=== PATIENT | male | born 1990 | race Caucasian/White ===

== ENCOUNTER 2024-07-02 16:34 | Outpatient (REF) | payer MEDICAID, SELFPAY ==
[2024-07-02 17:00] LABS: Buprenorphine Scr Not Detected (Not Detect)
== END 2024-07-02 16:35 | disposition home or self-care (01) ==
LOC: HO.HHCLNP 16:34
PROVIDERS: Visit Provider Family Medicine
DX: F11.20 Opioid dependence, uncomplicated (principal)
CPT/HCPCS: 36415; 80307

== ENCOUNTER 2024-09-24 17:53 | Outpatient (REF) | payer MEDICAID, SELFPAY ==
--- OUTSIDE RECORDS SUMMARY | 2024-09-24 17:55 | XMS_ITS | Encounter Summary ---
Author Organization [employer] Address [address] [place] [address] Care Team Providers Care Associate Professor Of Literature Name Role Phone Emily Gallegos MD Primary Care Provider + Reason for Visit * Reason Onset Date Comments Med Refill 09/24/2024 Encounter Details Date Type Department Care Team ([facility] st Contact Info) Description 09/24/2024 Refill [facility] [address] [place], [place] [phone] Jalyn Huff MD [address] [place] [address] Uncomplicated opioid dependence (CMS/HCC) Social History Tobacco Use Types Packs/Day Years Used Date Smoking Tobacco: Every Day Cigarettes Smokeless Tobacco: Never Alcohol Use Standard Drinks/Week Comments Not Currently 0 (1 standard drink = 0.6 oz pur e alcohol) Housing Stability Answer Date Recorded What is your housing situation today? I have housing today, but I am worried about losing housing in the future 06/04/[address] you li ve. Do you have problems with any of the following? None of the above 06/04/2024 Food Insecurity Answer Date Recorded Within the past 12 months, y ou worried that your food would run out before you got money to buy more: Never True 09/02/2023 Within the past 12 months,th e food you bought just didn't last and you didn't have enough money to get more: Never True 04/2024 Transportation Answer Date Recorded In the past 12 months, has l ack of transportation kept you from medical appts, meetings, work or from getting things needed for daily living? No 06/04/2024 Utilities Answer Date Recorded In the past 12 months, has t he electric, gas, oil or water company threatened to shut off services in your home? No 06/04/2024 Depression Answer Date Recorded Patient Health Questionnaire-2 Score 0 06/04/2024 Internet Access Answer Date Recorded Internet Access Q1 No 06/04/2024 Internet Access Q2 I do not want or need it 05/24 Sex and Gender Information Value Date Recorded Sex Assigned at Male 04/23/2022 10:20 AM EDT Legal Sex Male 10:20 AM EDT Gender Identity Male 04/23/2022 10:20 AM EDT Sexual Orientation Straight 04/23/2022 10 :20 AM EDT documented as of this encounter Plan of Treatment Upcoming Encounters Date Type Department Care Team (Late st Contact Info) Description 09/29/2024 10:30 AM EDT Office Visit [address] [address] Emily Gallegos MD [address] [place] [phone] 10/01/2024 3:15 PM EDT Office Visit [address] [address] Jalyn Huff MD [address] [place] [phone] 10/08/2024 3:45 PM EDT Office Visit [address] [address] Jalyn Huff MD [address] [place] [phone] documented as of this encounter Goals Goal Patient Goal Type Associated Problems Recent Progress Patient-Stated? Author Improve quality of life by maintaining ongoing abstinence from all mood-altering substances General Not on track( 025 9:58 AM EDT) Abhi Green, RN documented as of this encounter Visit Diagnoses Diagnosis Uncomplicated opioid dependence (CMS/HCC) documented in this encounter Care Teams Associate Professor Of Literature Relationship Specialty Start Date End Date Emily Gallegos MD [address] [place] [phone] PCP - General Family Medicine 05/30/16 documented as of this encounter
--- OUTSIDE RECORDS SUMMARY | 2024-09-24 17:55 | XMS_ITS | Encounter Summary ---
Author Organization [employer] Address [address] [facility] 7t [place] [address] Care Team Providers Care Putty And Patch Worker Name Role Phone Emily Gallegos MD Primary Care Provider + Reason for Visit * Reason Comments OBAT F/U Encounter Details Date Type Department Care Team ([facility] st Contact Info) Description 09/24/2024 3:15 PM EDT Office Visit [facility] [address] [place], [place] [phone] Jalyn Huff MD [address] [place] [address] Opioid type dependence, continuous (CMS/HCC) (Primary Dx) Social History Tobacco Use Types Packs/Day Years [...] AM EDT documented as of this encounter Progress Notes * Jalyn Huff MD - 09/24/2024 3:15 PM EDT Patient here today for Opioid Dependence. Current Suboxone dose of 16 mg on a 1 week schedule. Pt has been in the program for 3 months. Induction date: 06/04/24. LFTs due, ordered. Patient actively enrolled in w/ [employer]. MAPAT reviewed by provider. PCP is Dr Gallegos, appt 07/29/24, next 09/29/24. LAST VISIT 09/18/24 +bup, tacos, thc Woo continues to abstain from heroin with the help of Suboxone. He is working a couple days a week. 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 He recognizes he needs to address his cocaine use. Feels ready to start attending groups. Working with Kenney CARIAS. [facility]. Reminded him of upcoming PCP appt. TODAY VISIT 09/24/2024 UTOX:pos,opi,tacos,fen,thc,bup Subjective Patient ID: Woo Oshea is a 34 y.o. male who presents for OBAT F/U . Woo is being seen for OBAT services. He continues to use cocaine. Denies using heroin/fentanyl. We discussed the possibility that it's in his cocaine or MJ supply. He is connected to [facility]TH[facility] M[facility]. Has access to Narcan. Review of Systems Psychiatric/Behavioral: Negative for dysphoric mood. The patient is not nervous/anxious. Objective Physical Exam Constitutional: Appearance: Normal appearance. He is well-developed. Skin: General: Skin is warm and dry. Neurological: General: No focal deficit present. Mental Status: He is alert and oriented to person, place, and time. Mental status is at baseline. Psychiatric: Mood and Affect: Mood normal. Behavior: Behavior normal. Assessment/Plan Diagnoses and all orders for this visit: Opioid type dependence, continuous ([facility]) Counseling provided RE: importance of multiple sources of support for achieving and maintaining recovery. Counseling RE: harm reduction measures, ie, not using alone, the use of clean needles/equipment, Narcan. Discussed strategies to use when confronted with situations that trigger use. Continue current Suboxone dose. Continue weekly visits. - POCT NADYA-14 Urine Drug Screen - Drug Monitoring, Fentanyl, with Confirmation, Urine - Drug Monitoring, Opiates Expanded, Quantitative, Urine This information has been disclosed to you from records protected by federal confidentiality rules (42 CFR Part 2). The federal rules prohibit you from making any further disclosure of information inthis record that identifies a patient as having or having had a substance use disorder either directly, by reference to publicly available information, or through verification of such identification by another person unless further disclosure is expressly permitted by the written consent of the individual whose information is being disclosed or as otherwise permitted by (see2.3.1). The federal rules restrict any use of the information to investigate or prosecute with regard to a crime any patient with a substance use disorder, except as provided at 2.12??(5) and 2.65. documented in this encounter Plan of Treatment Upcoming Encounters Date Type Department Care Team (Late st Contact Info) Description 09/29/2024 10:30 AM EDT Office Visit [facility] [address] [place], [place] [phone] Emily Gallegos MD [address] [place], [place] [phone] 10/01/2024 3:15 PM EDT Office Visit [facility] [address] [place] [address] Jalyn Huff MD [address] [place] [address] 10/08/2024 3:45 PM EDT Office Visit [facility] [address] [place] [address] Jalyn Huff MD [address] [place] [address] Scheduled Orders Name Type Priority Associated Diagnoses Orde r Schedule POCT NADYA-14 Urine Drug Screen Point of Care Testing Routine Opioid type dependence, continuous (CMS/HCC) Ordered: 09/24/2024 Drug Monitoring, Fentanyl, with Confirmation, Urine Lab Routine Opioid type dependence, continuous (CMS/HCC) Ordered: 09/24/2024 Drug Monitoring, Opiates Expanded, Quantitative, Urine Lab Routine Opioid type dependence, continuous (CMS/HCC) Ordered: 09/24/2024 documented as of this encounter Goals Goal Patient Goal Type Associated Problems Recent Progress Patient-Stated? Author Improve quality of life by maintaining ongoing abstinence from all mood-altering substances General Not on track( 025 9:58 AM EDT) No Abhi Figueroa, RN documented as of this encounter Procedures Procedure Name Priority Date/Time Associated Diagnosis Comments POCT NADYA-14 URINE DRUG SCREEN Routine 09/24/2024 4:08 PM EDT Opioid type dependence, continuous (CMS/HCC) documented in this encounter Results * POCT NADYA-14 Urine Drug Screen (09/24/2024 4:08 PM EDT) THC Positive Cocaine Screen, Urine Positive Opiate Screen, Urine Positive Methamphetamine Screen Urine Negative Amphetamine Screen, Urine Negative Benzodiazepines Screen, Urine Negative Barbiturate Screen, Urine Negative Methadone Screen, Urine Negative Buprenophine Screen, Urine Positive TCA, Urine Negative MDMA Urine Negative ng/mL Oxycodone Screen, Urine Negative Phencyclidine (PCP), Urine Negative Fentanyl, Urine Positive Urine Urine specimen obtained by clean catch procedure / Unknown 09/24/2024 4:08 PM EDT Jalyn Huff MD POINT OF CARE TEST ENTER/AUGUSTA T ORDERABLES Final Result documented in this encounter Visit Diagnoses Diagnosis Opioid type dependence, continuous (CMS/HCC)- Primary Opioid type dependence, continuous documented in this encounter Care Teams Putty And Patch Worker Relationship Specialty Start Date End Date Emily Gallegos MD [address] [place] [phone] PCP - General Family Medicine 05/30/16 documented as of this encounter
--- OUTSIDE RECORDS SUMMARY | 2024-09-24 17:55 | XMS_ITS | Encounter Summary ---
Author Organization [employer] Address [address] [facility] [address] [place] [address] Care Team Providers Care Folder Machine Operator Name Role Phone Emily Gallegos MD Primary Care Provider + Reason for Visit * Reason Comments Recovery Supports Encounter Details Date Type Department Care Team ([facility] st Contact Info) Description 09/18/2024 Patient Outreach [facility] [address] [place] [address] Kenney Ornelas Recovery Supports Social History Tobacco Use Types Packs/Day Years [...] as of this encounter Progress Notes * Kenney Ornelas - 09/18/2024 11:59 PM EDT I met with Woo galvez. Setting: in person at [facility] Recovery Wellness Goals worked on: Social Stability Action taken/next steps: Offered person centered recovery support and Attended alcohol and drug free activity Additional comments: Kenney Ornelas documented in this encounter Plan of Treatment Upcoming Encounters Date Type Department Care Team (Late st Contact Info) Description 09/29/2024 10:30 AM EDT Office Visit [facility] [address] [place] [phone] Emily Gallegos MD [address] [place] [address] 10/01/2024 3:15 PM EDT Office Visit [address] [address] Jalyn Huff MD [address] [place] [phone] 10/08/2024 3:45 PM EDT Office Visit [address] [address] Jalyn Huff MD [address] [place] [phone] documented as of this encounter Goals Goal Patient Goal Type Associated Problems Recent Progress Patient-Stated? Author Improve quality of life by maintaining ongoing abstinence from all mood-altering substances General Not on track( 025 9:58 AM EDT) Abhi Green RN documented as of this encounter Visit Diagnoses Not on filedocumented in this encounter Care Teams Folder Machine Operator Relationship Specialty Start Date End Date Emily Gallegos MD [address] [place] [phone] PCP - General Family Medicine 05/30/16 documented as of this encounter
--- OUTSIDE RECORDS SUMMARY | 2024-09-24 17:55 | XMS_ITS | Clinical Summary ---
Author Organization [employer] Address [address] [facility] 7t [place] [address] Care Team Providers Care Abrasive Grader Helper Name Role Phone Emily Gallegos MD Primary Care Provider + Allergies No known active allergies Medications * This document contains information received from the source organization and may not represent a complete record from that organization. naloxone (Narcan) 4 mg/0.1 mL nasal spray Administer 1 spray (4 mg) into affected nostril(s) if needed for opioid reversal. May repeat every 2-3 minutes if needed, alternating nostrils, until medical assistance becomes available. 2 each 06/04/20 24 025 Active prazosin (Minipress) 1 MG capsule Take 1 mg by mouth at bedtime. 07/04/19 22 Active buPROPion SR (Wellbutrin SR) 100 MG 12 hr tablet Take 1 tablet (100 mg) by mouth every 12 (twelve) hours. 60 tablet 3 07/29/19 25 Active traZODone (Desyrel) 50 MG tablet Take 1 tablet (50 mg) by mouth if needed at bedtime for sleep. 30 tablet 1 07/29/19 25 025 Active Buprenorphine HCl-Naloxone HCl (Suboxone) 8-2 MG SL filmIndicatio ns:Uncomplica byron opioid dependence (CMS/HCC) Place 2 Film under the tongue Once per day for 7 days. 14 Film 09/25/19 25 025 Active Buprenorphine HCl-Naloxone HCl (Suboxone) 8-2 MG SL filmIndicatio ns:Uncomplica byron opioid dependence (CMS/HCC) Place 2 Film under the tongue Once per day for 7 days. 14 Film 08/25/19 25 025 Discontinued(Re order (will not trigger notification to Pharmacy)) Buprenorphine HCl-Naloxone HCl (Suboxone) 8-2 MG SL filmIndicatio ns:Uncomplica byron opioid dependence (CMS/HCC) Place 2 Film under the tongue Once per day for 7 days. 14 Film 09/01/19 25 025 Discontinued(Re order (will not trigger notification to Pharmacy)) Buprenorphine HCl-Naloxone HCl (Suboxone) 8-2 MG SL filmIndicatio ns:Uncomplica byron opioid dependence (CMS/HCC) Place 2 Film under the tongue Once per day for 7 days. 14 Film 09/11/19 25 025 Discontinued(Re order (will not trigger notification to Pharmacy)) Buprenorphine HCl-Naloxone HCl (Suboxone) 8-2 MG SL filmIndicatio ns:Uncomplica byron opioid dependence (CMS/HCC) Place 2 Film under the tongue Once per day for 7 days. 14 Film 09/15/19 25 025 Discontinued(Re order (will not trigger notification to Pharmacy)) Active Problems Problem Noted Date Diagnosed Date Opioid dependence, uncomplicated 08/26/2023 Assessment & Plan (07/29/2024 5:36 PM EST): Currently on Suboxone BID. Advised to take dose as prescribed and OBAT program. FU closely with personal development coach. Depression 08/05/2023 Cocaine use 11/16/2022 Assessment & Plan (07/29/2024 5:35 PM EST): Sober for 1 week, I congratulated him and encouraged him to continue reaching out to personal development coach. Patient has crisis number and is able to reach out for safety. FU in 4-6 weeks. Chronic pain of right knee 11/16/2022 Bunion 11/16/2022 Knee pain 03/20/2018 Anxiety 03/20/2018 Assessment & Plan (07/29/2024 5:34 PM EST): Start Wellbutrin + Trazodone. FU with me in 4-6 weeks. Refer to . Advised to FU closer to personal development coach. Advised to continue sober from cocaine and other substances. He feels safe at home and will reach out for safety. Alcohol dependence 03/20/2018 Assessment & Plan (07/29/2024 5:38 PM EST): Seems to be doing better, no withdrawal symptoms. Advised to continue being sober and FU closely with personal development coach. Patient agreed to influenza vaccine today. FU with labs in 4-6 weeks. Encounters * This document contains information received from the source organization and may not represent a complete record from that organization. Date Type Department Care Team Description 09/24/2024 3:15 PM EDT Office Visit [facility] [place] [address] Jalyn Huff MD Opioid type dependence, continuous (CMS/HCC) (Primary Dx) 09/24/2024 Refill [facility] [place] [address] Jalyn Huff MD Uncomplicated opioid dependence (CMS/HCC) 09/24/2024 Travel 09/18/2024 9:30 AM EDT Clinical Support [facility] [place] [address] Abhi Figueroa RN Uncomplicated opioid dependence (CMS/HCC) (Primary Dx) 09/18/2024 Patient Outreach [facility] [place] [address] Kenney Ornelas Recovery Supports 09/18/2024 Refill [facility] [place] [address] Jalyn Huff MD Uncomplicated opioid dependence (CMS/HCC) 09/18/2024 Travel 09/11/2024 Refill [facility] [place] [address] Jalyn Huff MD Uncomplicated opioid dependence (CMS/HCC) 09/10/2024 3:15 PM EDT Clinical Support [facility] [place] [address] Abhi Figueroa RN Opioid type dependence, continuous (CMS/HCC) (Primary Dx) 09/10/2024 Refill [facility] [place] [address] Abhi Figueroa RN Uncomplicated opioid dependence (CMS/HCC) 09/10/2024 Travel 09/04/2024 Population Health Risk Score [facility] () [address] [address] Provider, Population Health Generic 09/03/2024 3:30 PM EDT Office Visit [facility] [address] [place] [address] Jalyn Huff MD Uncomplicated opioid dependence (CMS/HCC) (Primary Dx) 09/03/2024 Travel 08/28/2024 Refill [facility] [address] [place] [address] Abhi Figueroa RN Uncomplicated opioid dependence (CMS/HCC) 08/27/2024 4:00 PM EST Office Visit [facility] [address] [place] [address] Jalyn Huff MD Uncomplicated opioid dependence (CMS/HCC) (Primary Dx); Cocaine use 08/27/2024 Travel 08/21/2024 Refill [facility] [address] [place] [address] Jalyn Huff MD Uncomplicated opioid dependence (CMS/HCC) 08/20/2024 2:00 PM EST Office Visit [facility] [address] [place] [address] Jalyn Huff MD Uncomplicated opioid dependence (CMS/HCC) (Primary Dx) 08/20/2024 Travel 08/17/2024 Refill [facility] [address] [place] [address] Jalyn Huff MD Uncomplicated opioid dependence (CMS/HCC) 08/13/2024 3:45 PM EST Office Visit [facility] [address] [place] [address] Jalyn Huff MD Uncomplicated opioid dependence (CMS/HCC) (Primary Dx) 08/13/2024 Travel 08/12/2024 Refill [facility] [address] [place] [address] Abhi Figueroa RN Uncomplicated opioid dependence (CMS/HCC) 08/07/2024 2:00 PM EST Clinical Support [address] [address] Abhi Figueroa RN Uncomplicated opioid dependence (CMS/HCC) 08/07/2024 Travel 08/06/2024 Patient Outreach [address] [address] Kenney Ornelas Recovery Supports 07/30/2024 Refill [facility] [address] [place] [address] Abhi Figueroa RN Uncomplicated opioid dependence (CMS/HCC) 07/29/2024 3:30 PM EST Office Visit [address] [address] Emily Gallegos MD Anxiety (Primary Dx); Cocaine use; Opioid dependence, uncomplicated (CMS/HCC); 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); Encounter for immunization 07/29/2024 3:00 PM EST Clinical Support [address] [address] Abhi Figueroa RN Uncomplicated opioid dependence (CMS/HCC) 07/29/2024 Travel 07/29/[address] [address] Abhi Figueroa RN 07/27/[address] [address] Abhi Figueroa RN Uncomplicated opioid dependence ([facility]/HCC) 07/23/[address] [address] Emily Gallegos MD Appointment Request 07/16/2024 3:30 PM EST Office Visit [address] [address] Jalyn Huff MD Uncomplicated opioid dependence (CMS/HCC) (Primary Dx) 07/16/2024 Refill [facility] [address] [place] [address] Abhi Figueroa RN Uncomplicated opioid dependence (CMS/HCC) 07/16/2024 Travel 07/14/2024 Refill [facility] [place] [address] Abhi Figueroa RN Uncomplicated opioid dependence (CMS/HCC) 07/10/2024 3:30 PM EST Clinical Support [facility] [address] Abhi Figueroa RN Uncomplicated opioid dependence (CMS/HCC) 07/10/2024 Travel 07/02/2024 3:45 PM EST Office Visit [facility] [place] [address] Jalyn Huff MD Uncomplicated opioid dependence ([facility]) (Primary Dx) 07/02/2024 Orders Only [facility] [place] [address] Jalyn Huff MD 07/02/2024 Patient Outreach [facility] [place] [address] Pankaj Wright Recovery Supports 07/02/2024 Refill [facility] [place] [address] Abhi Figueroa RN Uncomplicated opioid dependence ([facility]/HCC) 07/02/2024 Travel from Last 3 Months Immunizations Name Administration Dates Next Due Hep A, Adult 05/20/2018 Hep B, adult 07/22/2018,05/20/2018 Influenza injectable quadriv alent IIV4 with preservative 03/20/2018 Influenza, seasonal, injectable, preservative fr ee 07/29/2024 Td (adult), 5 Lf tetanus tox oid, preservative free, adsorbed 04/12/2013 Social History Tobacco Use Types Packs/Day Years Used Date Smoking Tobacco: Every Day Cigarettes Smokeless Tobacco: Never Tobacco Cessation:Ready to Q uit: Not Asked; Counseling Given: Not Answered Alcohol Use Standard Drinks/Week Comments Not Currently [...] Orientation Straight 04/23/2022 10 :20 AM EDT Last Filed Vital Signs Vital Sign Reading Time Taken Comments Blood Pressure 117/72 07/29/2024 3:39 PM EST Pulse 76 07/29/2024 3:39 PM EST Temperature 36.2 ??C (97.2 ??F) 07/29/2024 3:39 PM ES T Respiratory Rate - - Oxygen Saturation 98% 07/29/2024 3:39 PM EST Inhaled Oxygen Concentration - - Weight 86.3 kg (190 lb 4 oz) 07/29/2024 3:39 PM EST Height 162.6 cm (5' 4 ) 07/29/2024 3:39 PM EST Body Mass Index 32.66 07/29/2024 3:39 PM EST Plan of Treatment Upcoming Encounters Date Type Department Care Team (Late st Contact Info) Description 09/29/2024 10:30 AM EDT Office Visit [facility] [address] [place] [address] Emily Gallegos MD [address] [place], [place] [phone] 10/01/2024 3:15 PM EDT Office Visit [facility] [address] [place] [address] Jalyn Huff MD [address] [place] [phone] 10/08/2024 3:45 PM EDT Office Visit [facility] [address] [place] [phone] Jalyn Huff MD [address] [place] [phone] Health Maintenance Due Date Last Done Comments Lipid Panel 1989 Family Planning (PISQ) 2004 Pneumococcal Vaccine: Pediatrics (0 to 5 Years) and At-Risk Patients (6 to 49) Years) (1 of 2 - PCV) 2008 DTaP/Tdap/Td Vaccines (1 - Tdap) 04/13/2013 04/12/2013 Hepatitis B Vaccines (3 of 3 - 19+ 3-dose series) 11/17/2018 07/22/2018, 05/20/2018 COVID-19 Vaccine (3 - 2023-2 5 season) 2024 06/20/2021, 02/03/2021 Alcohol/Substance Use Screening 06/04/2025 06/04/2024 Depression Screening 06/04/2025 06/04/2024, 06/04/2024 SDOH Screening 06/04/2025 06/04/2024 Tobacco Screening 07/29/2025 07/29/2024 Zoster Vaccines (1 of 2) 2039 RSV Patients and Patients Aged 60 years or older (1 - 1-dose 75+ series) 2064 Hepatitis A Vaccines Aged Out 05/20/2018 No long er eligible based on patient's age to complete this topic HIV Screening Completed 08/22/2020 Hepatitis C Screening Completed 08/22/2020 Influenza Vaccine Completed 07/29/2024, 03/20/2018 HIB Vaccines Aged Out No longer eligi ble based on patient's age to complete this topic HPV Vaccines Aged Out No longer eligi ble based on patient's age to complete this topic IPV Vaccines Aged Out No longer eligi ble based on patient's age to complete this topic Meningococcal Vaccine Aged Out No lukas so eligible based on patient's age to complete this topic RSV under 20 months Aged Out No longe r eligible based on patient's age to complete this topic Rotavirus Vaccines Aged Out No longer eligible based on patient's age to complete this topic Goals Goal Patient Goal Type Associated Problems Recent Progress Patient-Stated? Author Improve quality of life by maintaining ongoing abstinence from all mood-altering substances General Not on track( 025 9:58 AM EDT) No Abhi Figueroa RN Procedures Procedure Name Priority Date/Time Associated Diagnosis Comments POCT NADYA-14 URINE DRUG SCREEN Routine 09/24/2024 4:08 PM EDT Opioid type dependence, continuous (CMS/HCC) POCT NADYA-14 URINE DRUG SCREEN Routine 09/18/2024 9:50 AM EDT Uncomplicated opioid dependence (CMS/HCC) POCT NADYA-14 URINE DRUG SCREEN Routine 09/10/2024 3:46 PM EDT Opioid type dependence, continuous (CMS/HCC) POCT NADYA-14 URINE DRUG SCREEN Routine 09/03/2024 3:25 PM EDT Uncomplicated opioid dependence (CMS/HCC) POCT NADYA-14 URINE DRUG SCREEN Routine 08/27/2024 3:50 PM EST Uncomplicated opioid dependence (CMS/HCC) POCT NADYA-14 URINE DRUG SCREEN Routine 08/20/2024 3:44 PM EST Uncomplicated opioid dependence (CMS/HCC) POCT NADYA-14 URINE DRUG SCREEN Routine 08/13/2024 4:01 PM EST Uncomplicated opioid dependence (CMS/HCC) POCT NADYA-14 URINE DRUG SCREEN Routine 08/07/2024 3:57 PM EST Uncomplicated opioid dependence (CMS/HCC) POCT NADYA-14 URINE DRUG SCREEN Routine 07/29/2024 3:18 PM EST Uncomplicated opioid dependence (CMS/HCC) POCT NADYA-14 URINE DRUG SCREEN Routine 07/16/2024 2:38 PM EST Uncomplicated opioid dependence (CMS/HCC) POCT NADYA-14 URINE DRUG SCREEN Routine 07/10/2024 3:02 PM EST Uncomplicated opioid dependence (CMS/HCC) BUPRENORPHINE SCREEN,URINE Routine 07/02/2024 2:53 PM EST POCT NADYA-14 URINE DRUG SCREEN Routine 07/02/2024 2:45 PM EST Uncomplicated opioid dependence (CMS/HCC) ZZZ HISTORICAL HEPATITIS C AB W/REFL TO HCV RNA, QN, PCR Routine 08/22/2020 10:18 AM EST HIV 1/2 ANTIGEN/ANTIBODY, FOURTH GENERATION W/RFL Routine 08/22/2020 10:18 AM EST from Last 3 Months or Most Recently Relevant to Health Maintenance Results * POCT NADYA-14 Urine Drug Screen (09/24/2024 4:08 PM EDT) Only the most recent of12 resultswithin the time period is included. THC Positive Cocaine Screen, Urine Positive Opiate [...] CARE TEST ENTER/AU[place]USTA T ORDERABLES Final Result * Buprenorphine Screen,Urine (07/02/2024 2:53 PM EST) Buprenorphine Screen Not Detected Not Detect ng/mL [facility] Comment:Buprenorphine cut-of f is 5 ng/mL.Positive results are unconfirmed and should not be used fornon-medical purposes. 07/02/2024 2:53 PM EST 07/02/2024 4:35 PM EST Jalyn Huff MD LAB URINE ORDERABLES Final R esult Performing Organization Address [facility] Co de Phone Number [facility] [address] [place] [address] [phone] * HEPATITIS C AB W/REFL TO HCV RNA, QN, PCR (08/22/2020 10:18 AM EST) HEPATITIS C ANTIBODY NON-REACT MAI NON-REACT MAI [facility] INDEX 0.01 <1.00 [facility] Comment: ?? HCV antibody was non-reactive. There is no laboratory ?? evidence of HCV infection. ?? In most cases, no further action is required. However, if recent HCV exposure is suspected, a test for HCV RNA (test code 43312) is suggested. ?? For additional information please refer to http://education.[employer]/faq/FDI35g0 (This link is being provided for informational/ educational purposes only.) ?? 08/22/2020 10:1 8 AM EST Zenon Lipscomb MD HISTORICAL/NON ORDERABLE LABS Fi nal Result Performing Organization Address City/[facility] Co de Phone Number [facility] [address] * HIV 1/2 ANTIGEN/ANTIBODY,FOURTH GENERATION W/RFL (08/22/2020 10:18 AM EST) HIV-1/2 ANTIGEN AND ANTIBODIES, 4TH GENERATION W/ REFLEX NON-REACT MAI NON-REACT MAI [facility] Comment: HIV-1 antigen and HIV-1/HIV-2 antibodies were not detected. There is no laboratory evidence of HIV infection. ?? PLEASE NOTE: This information has been disclosed to you from records whose confidentiality may be protected by state law. ??If your state requires such protection, then the state law prohibits you from making any further disclosure of the information without the specific written consent of the person to whom it pertains, or as otherwise permitted by law. A general authorization for the release of medical or other information is NOT sufficient for this purpose. ? For additional information please refer to http://[employer]/faq/ZCS140 (This link is being provided for informational/ educational purposes only.) ? The performance of this assay has not been clinically validated in patients less than 2 years old. ?? 08/22/2020 10:1 8 AM EST us Zenon Lipscomb MD LAB BLOOD ORDERABLES Final Resul t [facility] [address] from Last 3 Months or Most Recently Relevant to Health Maintenance Insurance [facility] C3 HSN FULL Care Teams Abrasive Grader Helper Relationship Specialty Start Date End Date Emily Gallegos MD [address] [place] [phone] PCP - General Family Medicine 05/30/16
--- OUTSIDE RECORDS SUMMARY | 2024-09-24 17:55 | XMS_ITS | Encounter Summary ---
Author Organization [employer] Address [address] [facility] 7t [place] [address] Care Team Providers Care Dry Food Products Mixer Name Role Phone Emily Gallegos MD Primary Care Provider + Reason for Visit * Reason Onset Date Comments Med Refill 09/18/2024 Encounter Details Date Type Department Care Team ([facility] st Contact Info) Description 09/18/2024 Refill [facility] [address] [place], [place] [phone] Jalyn Huff MD [address] [place] [address] Uncomplicated opioid dependence (CMS/HCC) Social History Tobacco [...] Description 09/29/2024 10:30 AM EDT Office Visit [address] [address] Emily Gallegos MD [address] [place] [address] 10/01/2024 3:15 PM EDT Office Visit [address] [address] Jalyn Huff MD [address] [place] [address] 10/08/2024 3:45 PM EDT Office Visit [address] [address] Jalyn Huff MD [address] [place] [address] documented as of this encounter Goals Goal Patient Goal Type Associated Problems Recent Progress Patient-Stated? Author Improve quality of life by maintaining ongoing abstinence from all mood-altering substances General Not on track( 025 9:58 AM EDT) Abhi Green, RN documented as of this encounter Visit Diagnoses Diagnosis Uncomplicated opioid dependence (CMS/HCC) documented in this encounter Care Teams Dry Food Products Mixer Relationship Specialty Start Date End Date Emily Gallegos MD [address] [place] [phone] PCP - General Family Medicine 05/30/16 documented as of this encounter
--- OUTSIDE RECORDS SUMMARY | 2024-09-24 17:55 | XMS_ITS | Encounter Summary ---
Author Organization [employer] Address [address] [place] [address] 7t [place] [address] Care Team Providers Care Label Coder Name Role Phone Emily Gallegos MD Primary Care Provider + Encounter Details Date Type Department Care Team (Late st Contact Info) Description 06/07/2022 Orders Only [address] [address] Naya Horton RN Social History Tobacco Use Types Packs/Day Years Used Date Smoking Tobacco: Never Assessed Sex and Gender Information Value Date Recorded Sex Assigned at Male 04/23/2022 10:20 AM EDT Legal Sex Male 10:20 AM EDT Gender Identity Male 04/23/2022 10:20 AM EDT Sexual Orientation Straight 04/23/2022 10 :20 AM EDT documented as of this encounter Plan of Treatment Upcoming Encounters Date Type Department Care Team (Late st Contact Info) Description 09/29/2024 10:30 AM EDT Office Visit [facility] [address] [place] [phone] Emily Gallegos MD [address] [place] [phone] 10/01/2024 3:15 PM EDT Office Visit [address] [address] Jalyn Huff MD [address] [place] [address] 10/08/2024 3:45 PM EDT Office Visit [address] [address] Jalyn Huff MD [address] [place], [place] [phone] documented as of this encounter Visit Diagnoses Not on filedocumented in this encounter Care Teams Label Coder Relationship Specialty Start Date End Date Emily Gallegos MD [address] [place] [address] PCP - General Family Medicine 05/30/16 documented as of this encounter
--- OUTSIDE RECORDS SUMMARY | 2024-09-24 17:55 | XMS_ITS | Encounter Summary ---
Author Organization [employer] Address [address] [facility] 7t [place] [address] Care Team Providers Care Lead Systems Engineer Name Role Phone Emily Gallegos MD Primary Care Provider + Encounter Details Date Type Department Care Team (Latest Contact Info) Description 09/24/2024 Travel Social History Tobacco Use Types Packs/Day Years [...] Description 09/29/2024 10:30 AM EDT Office Visit [facility] [address] [place] [phone] Emily Gallegos MD [address] [place] [address] 10/01/2024 3:15 PM EDT Office Visit [address] [address] Jalyn Huff MD [address] [place] [address] 10/08/2024 3:45 PM EDT Office Visit [address] [address] Jalyn Huff MD [address] [place] [address] documented as of this encounter Goals Goal Patient Goal Type Associated Problems Recent Progress Patient-Stated? Author Improve quality of life by maintaining ongoing abstinence from all mood-altering substances General Not on track( 025 9:58 AM EDT) Abhi Green, RN documented as of this encounter Visit Diagnoses Not on filedocumented in this encounter Care Teams Lead Systems Engineer Relationship Specialty Start Date End Date Emily Gallegos MD [address] [place] [phone] PCP - General Family Medicine 05/30/16 documented as of this encounter
[2024-09-24 18:08] LABS: Fentanyl, urine POSITIVE (Not Detect)
[2024-09-29 10:47] LABS: Codeine, Ur NEGATIVE; Hydrocodone, Ur NEGATIVE; Hydromorphone, Ur NEGATIVE; Morphine, Ur 286; Norhydrocodone, Ur NEGATIVE; Noroxycodone, Ur NEGATIVE; Oxycodone, Ur NEGATIVE; Oxymorphone, Ur NEGATIVE
== END 2024-09-24 17:54 | disposition home or self-care (01) ==
LOC: HO.HHCLNP 17:53
PROVIDERS: Visit Provider Family Medicine
DX: F11.20 Opioid dependence, uncomplicated (principal)
CPT/HCPCS: 80307; 80365; G0480

== ENCOUNTER 2024-11-11 11:21 | Outpatient (REF) | payer MEDICAID, SELFPAY ==
--- OUTSIDE RECORDS SUMMARY | 2024-11-11 12:39 | XMS_ITS | Encounter Summary ---
Author Organization [employer] Address [address] [facility] 7 [place] [address] Care Team Providers Care Music Therapist [employer] Name Role Phone Emily Gallegos MD Primary Care Provider + Reason for Visit * Reason Onset Date Comments Med Refill 11/09/2024 Encounter Details Date Type Department Care Team ([facility] st Contact Info) Description 11/09/2024 Refill [facility] [address] [place], [place] [phone] Jalyn Huff MD [address] [place] [address] Uncomplicated opioid dependence (CMS/HCC) Social History Tobacco Use Types Packs/Day Years Used Date Smoking Tobacco: Every Day Cigarettes Passive Smoke Exposure: Current Smokeless Tobacco: Never Alcohol Use Standard Drinks/Week Comments Not Currently 0 (1 standard drink = 0.6 oz pur e alcohol) Depression Answer Date Recorded Patient Health Questionnaire-9 Score 17 10/21/2024 Patient Health Questionnaire-9 Score 17 10/21/2024 Last PHQ-9: Questionnaire Data Not on file 0 10/21/2024 Housing Stability Answer Date Recorded What is [...] Answer Date Recorded Patient Health Questionnaire-2 Score 5 10/21/2024 Internet Access Answer Date Recorded Internet Access [...] Care Team (Late st Contact Info) Description 11/19/2024 2:00 PM EDT Office Visit [facility] [address] [place] [phone] Jalyn Huff MD [address] [place] [phone] 12/03/2024 2:00 PM EDT Office Visit [address] [address] Jalyn Huff MD [address] [place] [address] 12/22/2024 11:45 AM EDT Office Visit [address] [address] Emily Gallegos MD [address] [place] [address] documented as of this encounter Goals Goal Patient Goal Type Associated Problems Recent Progress Patient-Stated? Author Improve quality of life by maintaining ongoing abstinence from all mood-altering substances General Not on track( 025 1:21 PM EDT) No Divincenzo , Gene, RN Keep your medical appointments Lifestyle No Alexis Hill, PERCY documented as of this encounter Visit Diagnoses Diagnosis Uncomplicated opioid dependence (CMS/HCC) documented in this encounter Additional Health Concerns Assessment Noted Time PHQ-9 Depression Total Score: 17 10/21/2 025 3:40 PM EDT documented as of this encounter Care Teams Music Therapist [employer] Relationship Specialty Start Date End Date Emily Gallegos MD [address] [place] [phone] PCP - General Family Medicine 05/30/16 documented as of this encounter
--- OUTSIDE RECORDS SUMMARY | 2024-11-11 12:39 | XMS_ITS | Encounter Summary ---
Author Organization [employer] Address [address] [place] [address] 7 [place] [address] Care Team Providers Care Cable Cutter And Swager Name Role Phone Emily Gallegos MD Primary Care Provider + Encounter Details Date Type Department Care Team (Late st Contact Info) Description 06/07/[address] [facility] [address] [place] [phone] Naya Horton RN Social History Tobacco Use [...] Description 11/19/2024 2:00 PM EDT Office Visit [facility] [address] [place] [phone] Jalyn Huff MD [address] [place] [phone] 12/03/2024 2:00 PM EDT Office Visit [address] [address] Jalyn Huff MD [address] [place] [phone] 12/22/2024 11:45 AM EDT Office Visit [address] [address] Emily Gallegos MD [address] [place], [place] [phone] documented as of this encounter Visit Diagnoses Not on filedocumented in this encounter Care Teams Cable Cutter And Swager Relationship Specialty Start Date End Date Emily Gallegos MD [address] [place] [address] PCP - General Family Medicine 05/30/16 documented as of this encounter
--- OUTSIDE RECORDS SUMMARY | 2024-11-11 12:39 | XMS_ITS | Encounter Summary ---
Author Organization [employer] Address [address] [facility] 7t [place] [address] Care Team Providers Care Clinic Physician Director Name Role Phone Emily Gallegos MD Primary Care Provider + Encounter Details Date Type Department Care Team (Latest Contact Info) Description 11/06/2024 Travel Social History Tobacco Use Types Packs/Day [...] Description 11/19/2024 2:00 PM EDT Office Visit [facility] [address] [place] [address] Jalyn Huff MD [address] [place] [address] 12/03/2024 2:00 PM EDT Office Visit [address] [address] Jalyn Huff MD [address] [place] [address] 12/22/2024 11:45 AM EDT Office Visit [address] [address] Emily Gallegos MD [address] [place] [address] documented as of this encounter Goals Goal Patient Goal Type Associated Problems Recent Progress Patient-Stated? Author Improve quality of life by maintaining ongoing abstinence from all mood-altering substances General Not on track( 025 1:21 PM EDT) No Abhi Figueroa, PERCY Keep your medical appointments Lifestyle No Alexis Hill, PERCY documented as of this encounter Visit Diagnoses Not on filedocumented in this encounter Additional Health Concerns Assessment Noted Time PHQ-9 Depression Total Score: 17 025 3:40 PM EDT documented as of this encounter Care Teams Clinic Physician Director Relationship Specialty Start Date End Date Emily Gallegos MD [address] [place] [address] PCP - General Family Medicine 05/30/16 documented as of this encounter
--- OUTSIDE RECORDS SUMMARY | 2024-11-11 12:39 | XMS_ITS | Encounter Summary ---
Author Organization [employer] Address [address] [facility] 7t [place] [address] Care Team Providers Care Running Instructor Name Role Phone Emily Gallegos MD Primary Care Provider + Encounter Details Date Type Department Care Team (Latest Contact Info) Description 11/06/2024 11:00 AM EDT Clinical Support [facility] [address] [place] [address] Alexis Hill, [place]CY [address] [place] [address] Opioid dependence, uncomplicated (CMS/HCC) (Primary Dx) Social History Tobacco Use [...] as of this encounter Progress Notes * Alexis Hill, RN - 11/06/2024 11:00 AM EDT Woo here today for Opioid Dependence RV. Patient on current Suboxone dose of 16/4 mg on a 2 schedule, increased 11/06/24. Patient has been in the program for 5 months. Induction date: 06/04/24. LFT: ordered. Patient actively enrolled in behavioral health services, therapist Monty. LINDSAY MOELLER reviewed by provider. PCP Dr. Gallegos, last PCP appt 09/29/24, next 12/22/24. Smoking status: smoking 7 cigarettes/day plus vape 11/06/24, declined NRT Last visit 10/29/24 Televisit Woo Oshea is a 34 y.o. male who presents for OBAT TEL. Woo is being seen for OBAT services. He is maintaining abstinence with no cravings or med sideeffects. He is sick with cold symptoms today, hence the televisit. He has not tested for COVID and I encouraged him to do so. Today 11/06/24 Utox pos bup, tacos, thc Woo seen today for follow up for opioid use disorder. Missed appointment yesterday. Reports doing well in terms of abstinence from opioids. Continues to use cocaine, especially on weekends. Has fentanyl test strips and Narcan. Still staying sometimes at girlfriend's house but needs to move out. Interested in detox for cocaine use if possible, or a program. Will follow up with parent coach team. Smoking 7 cigarettes/day and vaping. Declines NRT, not interested in cutting down or quitting rightnow. Increased to 2 weeks today. Plan: Suboxone dosing schedule of 16/4 mg daily and management of side effects reviewed. Recovery support, harm reduction (including Narcan), and behavioral health attendance reviewed. Appointment for 11/19/24 given. Patient expressed understanding and agreement with continuing plan of care. This information has been disclosed to you [...] Description 11/19/2024 2:00 PM EDT Office Visit [facility] [address] [place] [address] Jalyn Huff MD [address] [place] [address] 12/03/2024 2:00 PM EDT Office Visit [facility] [address] [place] [address] Jalyn Huff MD [address] [place] [address] 12/22/2024 11:45 AM EDT Office Visit [facility] [address] [place] [address] Emily Gallegos MD [address] [place] [address] documented as of this encounter Goals Goal Patient Goal Type Associated Problems Recent Progress Patient-Stated? Author Improve quality of life by maintaining ongoing abstinence from all mood-altering substances General Not on track( 025 1:21 PM EDT) No Abhi Figueroa, RN Keep your medical appointments Lifestyle No Alexis Hill, PERCY documented as of this encounter Procedures Procedure Name Priority Date/Time Associated Diagnosis Comments POCT NADYA-14 URINE DRUG SCREEN Routine 11/06/2024 1:17 PM EDT Opioid dependence, uncomplicated (CMS/HCC) documented in this encounter Results * POCT NADYA-14 Urine Drug Screen (11/06/2024 1:17 PM EDT) THC Positive Cocaine Screen, Urine Positive Opiate Screen, Urine Negative Methamphetamine Screen Urine Negative Amphetamine Screen, Urine Negative Benzodiazepines Screen, Urine Negative Barbiturate Screen, Urine Negative Methadone Screen, Urine Negative Buprenophine Screen, Urine Positive TCA, Urine Negative MDMA Urine Negative ng/mL Oxycodone Screen, Urine Negative Phencyclidine (PCP), Urine Negative Propoxyphene, Urine Negative Fentanyl, Urine Negative Urine Urine specimen obtained by clean catch procedure / Unknown 11/06/2024 1:17 PM EDT Alpesh Garland MD POINT OF CARE TEST ENTER/EDIT ORDERABLES Final Result documented in this encounter Visit Diagnoses Diagnosis Opioid dependence, uncomplicated (CMS/HCC)- Primary documented in this encounter Additional Health Concerns Assessment Noted Time PHQ-9 Depression Total Score: 17 025 3:40 PM EDT documented as of this encounter Care Teams Running Instructor Relationship Specialty Start Date End Date Emily Gallegos MD [address] [place] [address] PCP - General Family Medicine 12/7/16 documented as of this encounter
--- OUTSIDE RECORDS SUMMARY | 2024-11-11 12:39 | XMS_ITS | Encounter Summary ---
Author Organization [employer] Address [address] [facility] 7t [place] [address] Care Team Providers Care Aircraft Stress Analyst Name Role Phone Emily Gallegos MD Primary Care Provider + Encounter Details Date Type Department Care Team ([facility] st Contact Info) Description 11/05/2024 Patient Outreach [facility]INE [address] [place], [place] [phone] Emily Gallegos MD [address] [place] [address] Social History Tobacco Use Types Packs/Day Years [...] as of this encounter Progress Notes * Clarice Bauman - 11/05/2024 12:48 PM EDT CHW Clarice Bauman placed three outreach calls to patient to introduce Complex Care Program. LVM with each call describing the program and requesting call back to CHW's direct line, . Patient's name, and Address was not confirmed. CHW did not receive any return calls from the patient. On last call provided patient with direct contact information for future reference. Case closed due to unable to reach. * Alexis Hill RN - 11/05/2024 12:48 PM EDT Dave Oneil, I saw pt today for OBAT and he gave me a new phone number which I have updated in the chart, , if it is not too late to outreach him about the Complex Care Program. documented in this encounter Plan of Treatment Upcoming Encounters Date Type Department Care Team (Late st Contact Info) Description 11/19/2024 2:00 PM EDT Office Visit [facility] MED[facility]INE [address] [place] [address] Jalyn Huff MD [address] [facility] [address] 12/03/2024 2:00 PM EDT Office Visit [facility] [place] [address] Jalyn Huff MD [address] [facility] [place] [address] 12/22/2024 11:45 AM EDT Office Visit [facility] [place] [address] Emily Gallegos MD [facility] [place], [place] [phone] documented as of this encounter Goals Goal [...] documented as of this encounter Care Teams Aircraft Stress Analyst Relationship Specialty Start Date End Date Emily Gallegos MD [facility] [place] [address] PCP - General Family Medicine 05/30/16 documented as of this encounter
--- OUTSIDE RECORDS SUMMARY | 2024-11-11 12:39 | XMS_ITS | Clinical Summary ---
Author Organization [employer] Address [address] [facility] 7[address] [place] [address] Care Team Providers Care Ceramic Coater Machine Name Role Phone Emily Gallegos MD Primary [...] by mouth at bedtime. 07/04/19 22 Active traZODone (Desyrel) 100 MG tablet Take 1 tablet (100 mg) by mouth at bedtime. for sleep 90 tablet 1 09/30/19 25 Active buPROPion SR (Wellbutrin SR) 150 MG 12 hr tablet Take 1 tablet (150 mg) by mouth every 12 (twelve) hours. 60 tablet 3 09/30/19 25 Active Buprenorphine HCl-Naloxone HCl (Suboxone) 8-2 MG SL filmIndicatio ns:Uncomplica byron opioid dependence (CMS/HCC) Place 2 Film under the tongue Once per day for 14 days. 28 Film 11/10/19 25 025 Active Buprenorphine HCl-Naloxone HCl (Suboxone) 8-2 MG SL filmIndicatio ns:Uncomplica byron opioid dependence (CMS/HCC) Place 2 Film under the tongue Once per day for 14 days. 14 Film 1 10/14/19 25 025 Discontinued(Re order (will not trigger notification to Pharmacy)) Buprenorphine HCl-Naloxone HCl (Suboxone) 8-2 MG SL filmIndicatio ns:Uncomplica byron opioid dependence (CMS/HCC) Place 2 Film under the tongue Once per day for 7 days. 14 Film 10/27/19 25 025 Discontinued(Re order (will not trigger notification to Pharmacy)) Buprenorphine HCl-Naloxone HCl (Suboxone) 8-2 MG SL filmIndicatio ns:Uncomplica byron opioid dependence (CMS/HCC) Place 2 Film under the tongue Once per day for 7 days. 14 Film 10/30/19 25 025 Discontinued(Re order (will not trigger notification to Pharmacy)) Buprenorphine HCl-Naloxone HCl (Suboxone) 8-2 MG SL filmIndicatio ns:Uncomplica byron opioid dependence (CMS/HCC) Place 2 Film under the tongue Once per day for 14 days. 28 Film 11/03/19 25 025 Discontinued(Re order (will not trigger notification to Pharmacy)) Active Problems Problem Noted Date Diagnosed Date Housing instability, housed, with risk of homele ssness 09/29/2024 Assessment & Plan (09/29/2024 11:19 AM EDT): Will refer to YAKOV/LILIAN He has long term information Opioid dependence, uncomplicated 08/26/2023 Assessment & Plan (09/30/2024 7:49 PM EDT): Doing well on Suboxone, no recent relapse on opiates Advised to follow closely with women's lacrosse coach He has naloxone prescription Assessment & Plan (07/29/2024 5:36 PM EST): Currently on Suboxone BID. Advised to take dose as prescribed and OBAT program. FU closely with women's lacrosse coach. Severe episode of recurrent major depressive disorder, without psychotic features 08/05/2023 Assessment & Plan (09/30/2024 7:48 PM EDT): Patient is struggling with transition to workforce and wants to move out of his ex partner apartment. We discussed importance of staying sober, avoid recreational substances or alcohol, reach out to women's lacrosse coach I will refer him to counseling and psychiatry for medication management I am referring him to heel caser to support him in this transition, job and apartment search Discussed about safety, to reach out to crisis number. Follow-up with me in 6 to 8 weeks Continue Suboxone program Cocaine use 11/16/2022 Assessment & Plan (09/29/2024 11:19 AM EDT): Relapsed, daily use Encouraged him to continue reaching out to women's lacrosse coach. Patient has crisis number and is able to reach out for safety. Refer to /psychiatry Assessment & Plan (07/29/2024 5:35 PM EST): Sober for 1 week, I congratulated him and encouraged him to continue reaching out to women's lacrosse coach. Patient has crisis number and is able to reach out for safety. FU in 4-6 weeks. Chronic pain of right knee 11/16/2022 Bunion 11/16/2022 Knee pain 03/20/2018 DEBBY (generalized anxiety disorder) 03/20/2018 Assessment & Plan (07/29/2024 5:34 PM EST): Start Wellbutrin + Trazodone. FU with me in 4-6 weeks. Refer to . Advised to FU closer to women's lacrosse coach. Advised to continue sober from cocaine and other substances. He feels safe at home and will reach out for safety. Alcohol dependence 03/20/2018 Assessment & Plan (07/29/2024 5:38 PM EST): Seems to be doing better, no withdrawal symptoms. Advised to continue being sober and FU closely with women's lacrosse coach. Patient agreed to influenza vaccine today. FU with labs in 4-6 weeks. Encounters * This document contains information received from the source organization and may not represent a complete record from that organization. Date Type Department Care Team Description 11/09/2024 Refill [facility] [address] [place] [phone] Jalyn Huff MD Uncomplicated opioid dependence ([facility]) 11/06/2024 11:00 AM EDT Clinical Support [address] [address] Alexis Hill RN Opioid dependence, uncomplicated (CMS/HCC) (Primary Dx) 11/06/2024 Travel 11/05/2024 Patient Outreach [facility] [address] [place] [address] Emily Gallegos MD 11/05/2024 Patient Outreach [address] [address] Emily Gallegos MD 10/30/[address] [address] Jalyn Huff MD Uncomplicated opioid dependence (CMS/HCC) 10/29/2024 3:45 PM EDT Telemedicine [address] [address] Jalyn Huff MD Uncomplicated opioid dependence (CMS/HCC) 10/29/2024 Travel 10/23/2024 Refill [facility] [address] [place] [address] Jalyn Huff MD Uncomplicated opioid dependence (CMS/HCC) 10/22/2024 4:00 PM EDT Office Visit [address] [address] Jalyn Huff MD Opioid type dependence, continuous (CMS/HCC) (Primary Dx) 10/22/2024 Travel 10/20/2024 Patient Outreach [address] [address] Emily Gallegos MD 10/16/2024 Patient Outreach [address] [address] Emily Gallegos MD Care Coordination 10/16/2024 Patient Outreach [address] [address] Emily Gallegos MD Care Coordination 10/15/2024 3:45 PM EDT Office Visit [address] [address] Jalyn Huff MD Uncomplicated opioid dependence (CMS/HCC) (Primary Dx) 10/15/2024 Travel 10/09/2024 Refill [facility] [address] [place] [address] Jalyn Huff MD Uncomplicated opioid dependence (CMS/HCC) 10/08/2024 3:45 PM EDT Office Visit [address] [address] Jalyn Huff MD Uncomplicated opioid dependence (CMS/HCC) (Primary Dx); Cocaine use 10/08/2024 Travel 10/08/2024 Patient Outreach [facility] [address] [place] [address] Emily Gallegos MD Care Coordination 10/07/2024 Patient Outreach [facility] [address] [place] [address] Emily Gallegos MD 10/02/2024 Patient Outreach [address] [address] Emily Gallegos MD Care Coordination ([facility] -[facility] chart review) 10/02/2024 Refill [facility] [address] [place] [address] Jalyn Huff MD Uncomplicated opioid dependence (CMS/HCC) 10/02/2024 Patient Outreach [facility] [address] [place] [address] Emily Gallegos MD Care Coordination (C3- chart review) 10/02/2024 Patient Outreach [address] [address] Emily Gallegos MD 10/01/2024 3:15 PM EDT Office Visit [facility] [address] [place] [address] Jalyn Huff MD Opioid type dependence, continuous (CMS/HCC) (Primary Dx) 10/01/2024 Travel 09/29/2024 10:30 AM EDT Office Visit [facility] [address] [place] [address] Emily Gallegos MD Housing instability, housed, with risk of homelessness (Primary Dx); Opioid dependence, uncomplicated (CMS/HCC); Cocaine use; Depression, unspecified depression type 09/29/2024 Travel 09/26/2024 Refill [facility] [place] [address] Emily Gallegos MD 09/24/2024 3:15 PM EDT Office Visit [facility] [place] [address] Jalyn Huff MD Opioid type dependence, continuous (CMS/HCC) (Primary Dx) 09/24/2024 Refill [facility] [address] [facility] [place] [address] Jalyn Huff MD Uncomplicated opioid dependence (CMS/HCC) 09/24/2024 Travel 09/18/2024 9:30 AM EDT Clinical Support [facility] [place] [address] Abhi Figueroa RN Uncomplicated opioid dependence (CMS/HCC) (Primary Dx) 09/18/2024 Patient Outreach [facility] [address] [facility] [place] [address] Kenney Ornelas [facility] Supports 09/18/2024 Refill [facility] [place] [address] Jalyn Huff MD Uncomplicated opioid dependence (CMS/HCC) 09/18/2024 Travel 09/11/2024 Refill [facility] [place] [address] Jalyn Huff MD Uncomplicated opioid dependence (CMS/HCC) 09/10/2024 3:15 PM EDT Clinical Support [facility] [place] [address] Abhi Figueroa RN Opioid type dependence, continuous (CMS/HCC) (Primary Dx) 09/10/2024 Refill [facility] [place] [address] Abhi Figueroa RN Uncomplicated opioid dependence (CMS/HCC) 09/10/2024 Travel 09/04/2024 [facility] () Department [address] [place] [phone] Provider, Population Health Generic 09/03/2024 3:30 PM EDT Office Visit [facility] [address] [place] [address] Jalyn Huff MD Uncomplicated opioid dependence ([facility]/HCC) (Primary Dx) 09/03/2024 Travel 08/28/2024 Refill [facility] [address] [place] [address] Abhi Figueroa RN Uncomplicated opioid dependence (CMS/HCC) 08/27/2024 4:00 PM EST Office Visit [facility] [address] [place] [address] Jalyn Huff MD Uncomplicated opioid dependence (CMS/HCC) (Primary Dx); Cocaine use 08/27/2024 Travel 08/21/2024 Refill [facility] [address] [place] [address] Jalyn Huff MD Uncomplicated opioid dependence ([facility]/HCC) 08/20/2024 2:00 PM EST Office Visit [facility] [address] [place] [address] Jalyn Huff MD Uncomplicated opioid dependence ([facility]/HCC) (Primary Dx) 08/20/2024 Travel 08/17/2024 Refill [facility] [address] [place] [address] Jalyn Huff MD Uncomplicated opioid dependence ([facility]/HCC) from Last 3 Months Immunizations Immunization Administration Dates Next Due Hep A, Adult 05/20/2018 Hep B, adult 07/22/2018,05/20/2018 Influenza injectable quadriv alent IIV4 with preservative 03/20/2018 Influenza, seasonal, injectable, preservative fr ee 07/29/2024 Td (adult), 5 Lf tetanus tox oid, preservative free, adsorbed 04/12/2013 Social History Tobacco Use Types Packs/Day Years Used Date Smoking Tobacco: Every Day Cigarettes Passive Smoke Exposure: Current Smokeless Tobacco: Never Tobacco Cessation:Ready to Q [...] Sign Reading Time Taken Comments Blood Pressure 130/81 09/29/2024 10:38 AM EDT Pulse 83 09/29/2024 10:38 AM EDT Temperature 35.3 ??C (95.6 ??F) 09/29/2024 10:38 AM E DT Respiratory Rate 16 09/29/2024 10:38 AM EDT Oxygen Saturation 98% 07/29/2024 3:39 PM EST Inhaled Oxygen Concentration - - Weight 80.1 kg (176 lb 9.6 oz) 09/29/2024 10:38 AM EDT Height 162.6 cm (5' 4 ) 09/29/2024 10:38 AM EDT Body Mass Index 30.31 09/29/2024 10:38 AM EDT Plan of Treatment Upcoming Encounters Date Type Department Care Team (Late st Contact Info) Description 11/19/2024 2:00 PM EDT Office Visit [facility] [address] [place] [address] Jalyn Huff MD [address] [place] [address] 12/03/2024 2:00 PM EDT Office Visit [facility] [address] [place] [address] Jalyn Huff MD [address] [place] [address] 12/22/2024 11:45 AM EDT Office Visit [facility] [address] [place] [address] Emily Gallegos MD [address] [place] [address] Health Maintenance Due Date Last Done Comments Lipid Panel 1989 Disability Screening 1989 Family Planning (PISQ) 2004 Pneumococcal Vaccine: Pediatrics (0 to 5 Years) and At-Risk Patients (6 to 49) Years) (1 of 2 - PCV) 2008 DTaP/Tdap/Td Vaccines (1 - Tdap) 04/13/2013 04/12/2013 Hepatitis B Vaccines (3 of 3 - 19+ 3-dose series) 11/17/2018 07/22/2018, 05/20/2018 COVID-19 Vaccine (3 - 2023-2 5 season) 2024 06/20/2021, 02/03/2021 Alcohol/Substance Use Screening 06/04/2025 06/04/2024 SDOH Screening 06/04/2025 06/04/2024 Tobacco Screening 09/29/2025 09/29/2024 Depression Screening 10/21/2025 10/21/2024, 10/21/2024 Zoster Vaccines (1 of 2) 2039 RSV [...] patient's age to complete this topic Meningococcal B Vaccine Aged Out No l onger eligible based on patient's age to complete [...] your medical appointments Lifestyle No Alexis Hill, curriculum and instruction specialist Procedure Name Priority Date/Time Associated Diagnosis Comments POCT NADYA-14 URINE DRUG SCREEN Routine 11/06/2024 1:17 PM EDT Opioid dependence, uncomplicated (CMS/HCC) POCT NADYA-14 URINE DRUG SCREEN Routine 10/22/2024 3:30 PM EDT Opioid type dependence, continuous (CMS/HCC) POCT NADYA-14 URINE DRUG SCREEN Routine 10/15/2024 3:50 PM EDT Uncomplicated opioid dependence (CMS/HCC) POCT NADYA-14 URINE DRUG SCREEN Routine 10/08/2024 4:28 PM EDT Uncomplicated opioid dependence (CMS/HCC) POCT NADYA-14 URINE DRUG SCREEN Routine 10/01/2024 2:53 PM EDT Opioid type dependence, continuous (CMS/HCC) FENTANYL, URINE Routine 09/24/2024 4:14 PM EDT DRUG MONITOR, OPIATES EXPANDED, QN, URINE Routine 09/24/2024 4:14 PM EDT Opioid type dependence, continuous (CMS/HCC) POCT NADYA-14 URINE DRUG SCREEN Routine 09/24/2024 [...] 3:44 PM EST Uncomplicated opioid dependence (CMS/HCC) ZZZ HISTORICAL HEPATITIS C AB W/REFL TO HCV RNA, QN, PCR Routine 08/22/2020 10:18 AM EST HIV 1/2 ANTIGEN/ANTIBODY, FOURTH GENERATION W/RFL Routine 08/22/2020 10:18 AM EST from Last 3 Months or Most Recently Relevant to Health Maintenance Results * POCT NADYA-14 Urine Drug Screen (11/06/2024 1:17 PM EDT) Only the most recent of11 resultswithin the time period is included. THC [...] procedure / Unknown 11/06/2024 1:17 PM EDT us Alpesh Garland MD POINT OF CARE TEST ENTER/EDIT ORDERABLES Final Result * Drug Monitoring, Opiates Expanded, Quantitative, Urine (09/24/2024 4:14 PM EDT) Codeine, Urine NEGATIVE [facility] Comment:REFERENCE RANGE: <50 ng/mL Hydrocodone, Ur NEGATIVE [facility] Comment:REFERENCE RANGE: <50 ng/mL Oxycodone, Urine NEGATIVE [facility] Comment:REFERENCE RANGE: <50 ng/mL Oxycodone GC/MS Note SEE NOTE [facility] Comment:This drug testing is for medical treatment only. Analysiswas performed as non-forensic testing and these resultsshould be used only by healthcare providers to renderdiagnosis or treatment, or to monitor progress of medicalconditions.LDT Notes:Confirmation tests were developed and their analyticalperformance characteristics have been determined by [employer]. It has not been cleared or approved by the FDA.This assay has been validated pursuant to the CLIAregulations and is used for clinical purposes.Healthcare Providers needing Interpretation assistance,please contact us at [phone] ( ) M-F,8am to 10pm ESTTHIS TEST PERFORMED AT:[id number] [place] [phone] DIRECTOR: IRIS BARRERA MD Morphine, Urine 286 [facility] Comment:REFERENCE RANGE: <50 ng/mL Hydromorphone, Urine NEGATIVE [facility] Comment:REFERENCE RANGE: <50 ng/mL Oxymorphone, Urine NEGATIVE [facility] Comment:REFERENCE RANGE: <50 ng/mL Opiates GC/MS Note SEE NOTE [facility] Comment: This drug testing is for medical treatment only. Analysiswas performed as non-forensic testing and these resultsshould be used only by healthcare providers to renderdiagnosis or treatment, or to monitor progress of medicalconditions.Opiates Notes:Morphine detected is consistent with the use of the drugMorphine. Morphine can be a prescribed drug and is also ametabolite of Codeine and Heroin. Low concentrations ofMorphine have been observed following ingestion of productscontaining poppy seeds.LDT Notes:Confirmation tests were developed and their analyticalperformance characteristics have been determined by [facility]. It has not been cleared or approved by the FDA.This assay has been validated pursuant to the CLIAregulations and is used for clinical purposes.Healthcare Providers needing Interpretation assistance,please contact us at [phone] ( ) M-F,8am to 10pm ESTTHIS TEST PERFORMED AT:[facility] [address] [phone] DIRECTOR: IRIS BARRERA MD Norhydrocodone, Urine NEGATIVE [facility] Comment:REFERENCE RANGE: <50 ng/mL Noroxycodone, Urine NEGATIVE [facility] Comment:REFERENCE RANGE: <50 ng/mL Urine 09/24/2024 4:14 PM EDT 09/24/2024 5:55 PM EDT us Jalyn Huff MD LAB URINE ORDERABLES Final R esult [facility] [address] [place] [phone] * (ABNORMAL) Fentanyl, urine (09/24/2024 4:14 PM EDT) FENTANYL URINE POSITIVE( A) Not Detect [facility] Comment:Fentanyl cut-off is 1 ng/mL.Positive results are unconfirmed and should not be used fornon-medical purposes. 09/24/2024 4:14 PM EDT 09/24/2024 5:55 PM EDT Jalyn Huff MD LAB URINE ORDERABLES Final R esult Performing Organization Address City/[facility]/ZIP Co de Phone Number [facility] [address] [place] [address] [phone] * HEPATITIS C AB W/REFL TO [...] a test for HCV RNA (test code 46760) is suggested. ?? For additional information please refer to http://education.[employer]/faq/ULE14o4 (This link is being provided for informational/ educational purposes only.) ?? 08/22/2020 10:1 8 AM EST Zenon Lipscomb MD HISTORICAL/NON ORDERABLE LABS Fi nal Result Performing Organization Address City/[facility] Co de Phone Number [facility] [address] * HIV 1/2 ANTIGEN/ANTIBODY,FOURTH GENERATION W/RFL [...] ? For additional information please refer to http://[employer]/faq/WBH055 (This link is being provided for informational/ educational purposes only.) ? The performance of this assay has not been clinically validated in patients less than 2 years old. ?? 08/22/2020 10:1 8 AM EST us Zenon Lipscomb MD LAB BLOOD ORDERABLES Final Resul t [facility] [address] from Last 3 Months or Most Recently Relevant to Health Maintenance Insurance [facility] C3 HSN FULL Care Teams Ceramic Coater Machine Relationship Specialty Start Date End Date Emily Gallegos MD [address] [place] [phone] PCP - General Family Medicine 05/30/16
[2024-11-11 15:01] LABS: Alanine Aminotransferase 13 U/L (0-40); Albumin Level 4.6 g/dL (3.5-5.0); Alkaline Phosphatase 74 U/L (39-117); Anion Gap 11 (12-20); Aspartate Amino Transferase 22 U/L (5-37); Bilirubin Direct 0.3 mg/dL (0.0-0.5); Bilirubin Total 0.6 mg/dL (0.0-1.0); Blood Urea Nitrogen 8 mg/dL (9-16); Calcium 9.2 mg/dL (8.4-10.2); Carbon Dioxide 29 mmol/L (22-29); Chloride 106 mmol/L (96-108); Cholesterol 141 mg/dL (<200); Estimated Glomerular Filt Rate > 60; Glucose Random 95 mg/dL (60-115); HDL Cholesterol 50 mg/dL (>40); LDL Cholesterol Calculated 75 mg/dL (<100); Potassium 3.9 mmol/L (3.3-5.1); Sodium 142 mmol/L (135-145); Total Protein 7.4 g/dL (6.5-8.0); Triglycerides 84 mg/dL (<150)
[2024-11-11 15:08] LABS: TSH reflex Free T4 0.47 uIU/mL (0.32-4.0); Vitamin D 25-OH Total 29.3 ng/mL (>30)
[2024-11-11 17:22] LABS: Reflex LDLD? No
[2024-11-12 03:46] LABS: Syphilis Screen Nonreactive (Nonreactive)
[2024-11-12 03:48] LABS: Hepatitis A Antibody IgM 0.13 Index (0-0.79); ~Hepatitis A Antibody IgM Nonreactive (Nonreactive)
[2024-11-12 04:20] LABS: HBS Num1 1.22 mIU/mL (0-7.99); HBc Num1 0.06 S/CO (0.00-0.79); HBsAGNum1 0.41 S/CO (0.00-0.99); HIV AB/AG Nonreactive (Nonreactive); HIV Num 1 0.06 S/CO (0.00-0.99); Hepatitis B Core Antibody Nonreactive (Nonreactive); Hepatitis B Surface Antigen Negative (Negative); ~HepC Num1 0.11 S/CO (0.00-0.79); ~Hepatitis B Surface Antibody NONREACTIVE (Nonreactive); ~Hepatitis C Antibody Nonreactive (Nonreactive)
[2024-11-12 04:37] LABS: ~HepC Num1 0.11 S/CO (0.00-0.79); ~Hepatitis C Antibody Nonreactive (Nonreactive)
[2024-11-14 14:49] LABS: TS Negative Control Passed; TS Panel A 0; TS Panel B 0; TS Positive Control Passed; TSpotTB Negative (Negative)
== END 2024-11-11 11:22 | disposition home or self-care (01) ==
LOC: HO.HHCL 11:21
PROVIDERS: Family Medicine; Visit Provider Internal Medicine
DX: F11.20 Opioid dependence, uncomplicated (principal); F14.90 Cocaine use, unspecified, uncomplicated; F10.29 Alcohol dependence with unspecified alcohol-induced disorder; F41.9 Anxiety disorder, unspecified
CPT/HCPCS: 36415; 80048; 80061; 80076; 82306; 84443; 86481; 86704; 86706; 86709; 86780; 86803; 87340; 87389

== ENCOUNTER 2024-12-17 16:14 | Outpatient (REF) | payer MEDICAID, SELFPAY ==
--- OUTSIDE RECORDS SUMMARY | 2024-12-17 19:41 | XMS_ITS | Encounter Summary ---
Author Organization [facility] Address [address] [place] [address] 7 [place] [address] Care Team Providers Care Paraprofessional Education Assistant Name Role Phone Emily Gallegos MD Primary Care Provider + Encounter Details Date Type Department Care Team (Late st Contact Info) Description 06/07/[address] [facility] [address] [place] [phone] Naya Horton RN Social History Tobacco Use [...] Care Team (Late st Contact Info) Description 12/22/2024 11:45 AM EDT Office Visit [facility] [address] [place] [address] Emily Gallegos MD [address] [place] [address] 12/31/2024 2:30 PM EDT Office Visit [facility] [address] [place] [address] Jalyn Huff MD [address] [place] [address] 01/01/2025 2:15 PM EDT Office Visit [address] [phone] Jose Guadalupe Moss, SHARED SERVICES AND OUTSOURCING MANAGER [address] [place], [place] [phone] 01/12/2025 2:30 PM EDT Office Visit [facility] ADULT D[facility]AL [address] [place], [place] [phone] Vin Martin DDS [address] [place], [place] [phone] documented as of this encounter Visit Diagnoses Not on filedocumented in this encounter Care Teams Paraprofessional Education Assistant Relationship Specialty Start Date End Date Emily Gallegos MD [address] [place] [address] [phone] PCP - General Family Medicine 05/30/16 documented as of this encounter
[2024-12-18 09:09] LABS: CT PCR Urine NOT DETECTED (Not Detect.); NG PCR Urine NOT DETECTED (Not Detect.)
== END 2024-12-17 16:15 | disposition home or self-care (01) ==
LOC: HO.HHCLNP 16:14
PROVIDERS: Visit Provider Family Medicine
DX: Z20.2 Contact with and (suspected) exposure to infections with a predominantly sexual mode of transmission (principal)
CPT/HCPCS: 36415; 87491; 87591